=== PATIENT | female | born 1970 | race Caucasian/White ===

== ENCOUNTER 2017-11-18 17:10 | Emergency (ER) | payer OTHER ==
[~2017-11-18] VITALS: Ht 167.6 cm; Wt 108.0 kg
[~2017-11-18 17:10] MED LIST changes: -DEXAMETHASONE SOD PHOS 4 MG/ML VIAL ONE; -IOHEXOL 300 MG/ML 50 ML VIAL. ONE; -LIDOCAINE 1% PF 30 ML VIAL. ONE; -METO10TA81 PO
--- NOTE | 2017-11-18 17:21 | PHYS DOC ---
Adult General Chief Complaint Chief Complaint: HEADACHE HPI HPI 47-year-old female had an epidural for cervical radiculopathy today. After her injection just prior to arrival here she developed a severe headache. She states it feels very typical of her previous migraine headaches. She denies any fever or neck pain. She denies any lateralizing neurologic weakness. I spoke with her pain doctor on the phone and they were concerned that she may develop some neurologic finding and wanted her observed.[] Review of Systems Review of Systems Constitutional: Denies fever or chills [] Eyes: Denies change in visual acuity, redness, or eye pain [] HENT: Denies nasal congestion or sore throat [] Respiratory: Denies cough or shortness of breath [] Cardiovascular: No additional information not addressed in HPI [] GI: Denies abdominal pain, nausea, vomiting, bloody stools or diarrhea [] : Denies dysuria or hematuria [] Musculoskeletal: Denies back pain or joint pain [] Integument: Denies rash or skin lesions [] Neurologic: Per history of present illness[] Endocrine: Denies polyuria or polydipsia [] All other systems were reviewed and found to be within normal limits, except as documented in this note. Allergies Allergies Allergies Coded Allergies Type Severity Reaction Last Updated Verified Penicillins Allergy Intermediate 07/05/14 Yes diphenhydramine Allergy Intermediate 07/05/14 Yes coconut oil Allergy Mild 07/04/14 Yes lactose Allergy Mild 07/04/14 Yes Physical Exam Physical Exam Constitutional: Well developed, well nourished, appears uncomfortable what. [] HENT: Normocephalic, atraumatic, bilateral external ears normal, oropharynx moist, no oral exudates, nose normal. [] Eyes: PERRLA, EOMI, conjunctiva normal, no discharge. [] Neck: Normal range of motion, no tenderness, supple, no stridor. [] Cardiovascular:Heart rate regular rhythm, no murmur [] Lungs & Thorax: Bilateral breath sounds clear to auscultation [] Abdomen: Bowel sounds normal, soft, no tenderness, no masses, no pulsatile masses. [] Skin: Warm, dry, no erythema, no rash. [] Back: No tenderness, no CVA tenderness. [] Extremities: No tenderness, no cyanosis, no clubbing, ROM intact, no edema. [] Neurologic: Alert and oriented X 3, normal motor function, normal sensory function, no focal deficits noted. [] Psychologic: Anxious. [] EKG EKG [] Radiology/Procedures Radiology/Procedures [] Course & Med Decision Making Course & Med Decision Making Pertinent Labs and Imaging studies reviewed. (See chart for details) [ED course: Evaluation reveals a 47-year-old female with likely migraine type syndrome. She was given IV saline, Reglan, Toradol and Decadron with near complete resolution of her headache. Patient is safe for discharge home at this time.] Dragon Disclaimer Dragon Disclaimer This electronic medical record was generated, in whole or in part, using a voice recognition dictation system. Departure Departure: Impression: Primary Impression: Migraine Disposition: HOME, SELF-CARE Condition: IMPROVED Referrals: BRUNO WHITTINGTON MD (PCP) Patient Instructions: Migraine Headache Additional Instructions: Follow with her primary care physician this week for recheck. Return him or sperm with any new or concerning symptoms Scripts Metoclopramide Hcl (REGLAN) 10 Mg Tablet 10 MG PO PRN Q8HRS PRN for HEADACHE, #30 TAB 3 Refills Prov: AYDEE BOUCHER DO 11/18/17 Problem Qualifiers Primary Impression: Migraine Migraine type: unspecified Status migrainosus presence: without status migrainosus Intractability: not intractable Qualified Codes: G43.909 - Migraine, unspecified, not intractable, without status migrainosus AYDEE BOUCHER DO Nov 18, 2017 17:21
[2017-11-18] MEDS ORDERED: IV NORMAL SALINE 1,000ML 1,000 ML IV ONE (17:30)
[2017-11-18] MEDS ORDERED: METOCLOPRAMIDE HCL 10 MG/2 ML VIAL. IV ONE (17:45)
[2017-11-18] MEDS ORDERED: DEXAMETHASONE SOD PHOS 10 MG/ML VIAL IV ONE (17:45)
[2017-11-18] MEDS ORDERED: KETOROLAC 30 MG/ML VIAL. IV ONE (17:45)
[2017-11-18] MEDS ORDERED: METO10TA81 PO (18:06)
[2017-11-18 18:25] VITALS: BP 125/82
== END 2017-11-18 18:26 | disposition home or self-care (01) ==
LOC: ER 17:10
DX: G43.909 Migraine, unspecified, not intractable, without status migrainosus (principal); M54.12 Radiculopathy, cervical region; Z88.0 Allergy status to penicillin; Z88.8 Allergy status to other drugs, medicaments and biological substances; Z91.011 Allergy to milk products; Z91.048 Other nonmedicinal substance allergy status
CPT/HCPCS: 96374; 96375; 99284; J1100; J1885; J2765; J7030

== ENCOUNTER → 2017-11-18 | Outpatient (CLI) | payer OTHER ==
[2014-07-07 10:51] VITALS: BP 107/61
[~2017-11-18] MED LIST: ALBU8.5H8 IH; BECL8.7A6 IH; CEFU250T PO; CHOL20009 PO; CIPR500T94 PO; DEXAMETHASONE SOD PHOS 4 MG/ML VIAL ONE; DILT180C2 PO; DULO60CA6 PO; EZET10TA18 PO; FENO145T30 PO; HYDR-2758 PO; IOHEXOL 300 MG/ML 50 ML VIAL. ONE; LIDOCAINE 1% PF 30 ML VIAL. ONE; METF500T5 PO; METO10TA81 PO; MIRT15TA PO; MONT10TA6 PO; PANT40TA3 PO; PREG100C PO; PROM25VI5 IV; SUMA100T3 PO; TOPI100T42 PO; TRAZ-90 PO
== END ==
LOC: SURG 15:15
PROVIDERS: ATTEND Anesthesiology Pain Medicine
DX: M47.812 Spondylosis without myelopathy or radiculopathy, cervical region (principal); M50.323 Other cervical disc degeneration at C6-C7 level; K21.9 Gastro-esophageal reflux disease without esophagitis; F32.9 Major depressive disorder, single episode, unspecified; J45.909 Unspecified asthma, uncomplicated; Z98.51 Tubal ligation status; Z87.440 Personal history of urinary (tract) infections; Z88.8 Allergy status to other drugs, medicaments and biological substances; Z87.01 Personal history of pneumonia (recurrent)
CPT/HCPCS: 62321; J1100; J2001; Q9967

== ENCOUNTER → 2018-05-11 | Outpatient (CLI) | payer OTHER ==
[~2018-05-11] MED LIST changes: +HYDR-2155 PO; -HYDR-2758 PO; +METF500T16 PO; -METF500T5 PO; +METO10TA81 PO; +TRAZ-86 PO; -TRAZ-90 PO
[2018-05-11 20:07] LABS: HEMOGLOBIN A1C 5.6 % (4.8-5.6)
== END | disposition home or self-care (01) ==
LOC: LAB 08:27
DX: E11.9 Type 2 diabetes mellitus without complications (principal)
CPT/HCPCS: 36415; 83036

== ENCOUNTER → 2018-07-25 | Outpatient (CLI) | payer BC ==
[~2018-07-25] MED LIST changes: +ALBU2.5V8 IH; -ALBU8.5H8 IH; -MONT10TA6 PO; +MONT10TA80 PO
[2018-07-25 13:08] LABS: BASO % 0 % (0-3); EOS # 0.2 x10^3/uL (0.0-0.7); EOS % 3 % (0-3); HEMATOCRIT 44.6 % (36.0-47.0); LYMPH # 1.9 x10^3/uL (1.0-4.8); LYMPH % 32 % (24-48); MEAN CORPUSCULAR HEMOGLOBIN 32 pg (25-35); MEAN CORPUSCULAR HGB CONC 34 g/dL (31-37); MEAN CORPUSCULAR VOLUME 95 fL (79-100); MONO # 0.4 x10^3/uL (0.0-1.1); MONO % 7 % (0-9); NEUT # 3.5 x10^3uL (1.8-7.7); NEUT % 58 % (31-73); PLATELET COUNT 201 x10^3/uL (140-400); RED CELL DISTRIBUTION WIDTH 13.3 % (11.5-14.5); WHITE BLOOD COUNT 6.1 x10^3/uL (4.0-11.0)
[2018-07-25 13:19] LABS: ALBUMIN 3.9 g/dL (3.4-5.0); ALBUMIN/GLOBULIN RATIO 1.1 (1.0-1.7); CALCIUM 9.3 mg/dL (8.5-10.1); CREATININE 0.8 mg/dL (0.6-1.0); GFR 76.9; TOTAL BILIRUBIN 0.5 mg/dL (0.2-1.0); TOTAL PROTEIN 7.5 g/dL (6.4-8.2)
[2018-07-26 04:07] LABS: DHEA SO4 102.3 ug/dL (41.2-243.7); ESTRADIOL LEVEL 11.2 pg/mL (.); FSH 42.5 mIU/mL (.); LUTEINIZING HORMONE 29.3 mIU/mL (.); PROLACTIN 9.7 ng/mL (4.8-23.3)
[2018-07-26 06:08] LABS: HEMOGLOBIN A1C 5.8 % (4.8-5.6)
[2018-07-26 13:22] LABS: THYROID STIM HORMONE (TSH) 2.132 uIU/mL (0.358-3.740)
[2018-07-28 07:09] LABS: TESTOSTERONE FREE 0.66 ng/dL (0.10-0.85); TESTOSTERONE TOTAL 20 ng/dL (8-48)
== END | disposition home or self-care (01) ==
LOC: LAB 12:05
PROVIDERS: ATTEND Obstetrics & Gynecology
DX: N91.2 Amenorrhea, unspecified (principal)
CPT/HCPCS: 36415; 80053; 80061; 82627; 82670; 83001; 83002; 83036; 83525; 84146; 84402; 84403; 84443; 85025

== ENCOUNTER → 2018-07-26 | Outpatient (CLI) | payer BC, OTHER ==
--- NOTE | 2018-07-26 10:41 | RAD ---
DATE: 07/26/2018 EXAM: MAMMO VALERIE SCREENING BILATERAL HISTORY: Routine screening COMPARISON: 07/05/2012 This study was interpreted with the benefit of Computerized Aided Detection (CAD). Breast Density: SCATTERED The breast parenchyma shows scattered fibroglandular densities. Breast parenchyma level B. FINDINGS: 2-D and 3-D tomosynthesis imaging was performed in CC and MLO projections. There is a benign-appearing lymph node in the lateral aspect of the right breast which is unchanged. There is an 8 mm smooth nodule in the anterolateral left periareolar region as best seen on CC tomosynthesis images #19 and oblique tomosynthesis image #19. This was not definitely visible on the previous study. No other new or enlarging breast densities are seen. Minimal benign type calcifications present. No suspicious microcalcifications have developed. IMPRESSION: Small left breast nodule. Sonographic evaluation is suggested. BI-RADS CATEGORY: 0 INCOMPLETE: NEEDS ADDITIONAL IMAGING EVALUATION AND/OR PRIOR MAMMOGRAMS FOR COMPARISON. RECOMMENDED FOLLOW-UP: ADD ADDITIONAL IMAGING PQRS compliance statement: Patient information was entered into a reminder system with a target due date for the next mammogram. Mammography is a sensitive method for finding small breast cancers, but it does not detect them all and is not a substitute for careful clinical examination. A negative mammogram does not negate a clinically suspicious finding and should not result in delay in biopsying a clinically suspicious abnormality. "Our facility is accredited by the [employer] Mammography Program."
--- NOTE | 2018-07-26 11:55 | RAD ---
EXAM: Pelvic sonogram. HISTORY: Irregular periods. TECHNIQUE: Transabdominal and transvaginal sonographic imaging of the pelvis was performed. COMPARISON: None. FINDINGS: The uterus measures 7.0 x 4.8 x 4.2 cm. The endometrial stripe measures 9.4 mm transvaginally. The ovaries are normal in size and demonstrate normal blood flow. There is a 1.0 cm dominant right ovarian follicle. There is a small amount of simple free fluid. There is a nabothian cyst within the cervix. IMPRESSION: 1. Normal endometrial thickness for a premenopausal female. 2. 1.0 cm dominant right ovarian follicle. 3. Small amount of simple pelvic free fluid. 4. Nabothian cyst within the cervix. Electronically signed by: Temitope Kenny MD (07/26/2018 11:52 AM) [id number]
== END | disposition home or self-care (01) ==
LOC: US 08:20
PROVIDERS: ATTEND Obstetrics & Gynecology
DX: Z12.31 Encounter for screening mammogram for malignant neoplasm of breast (principal); N63.20 Unspecified lump in the left breast, unspecified quadrant; N83.01 Follicular cyst of right ovary; N88.8 Other specified noninflammatory disorders of cervix uteri
CPT/HCPCS: 76830; 76856; 77063; 77067

== ENCOUNTER → 2018-08-03 | Outpatient (CLI) | payer BC ==
[~2018-08-03] MED LIST changes: +MONT10TA6 PO; -MONT10TA80 PO
--- NOTE | 2018-08-03 13:39 | RAD ---
Left breast ultrasound, 08/03/2018: History: Suspicious screening study Screening images demonstrated a small smooth nodule in the anterolateral left periareolar region. A targeted ultrasound exam of that region was performed. At the 2:00 location approximately 3.5 cm in the nipple there is a small smooth elongated hypoechoic nodule. There is no posterior acoustic enhancement or shadowing. The nodule is wider than tall. It measures 8 x 6 x 2.5 mm. No internal color flow is seen. It has a relatively benign appearance and is probably a small fibroadenoma or complicated cyst. This probably corresponds to the mammographic abnormality, however, that cannot be stated with certainty. No other sonographic abnormality was seen in this region. IMPRESSION: Probably benign left breast nodule as described above. Surveillance beginning with follow-up left mammography and left breast ultrasound in 6 months is suggested. BI-RADS 3-probably benign findings
== END | disposition home or self-care (01) ==
LOC: US 12:41
PROVIDERS: ATTEND Obstetrics & Gynecology
DX: N63.21 Unspecified lump in the left breast, upper outer quadrant (principal)
CPT/HCPCS: 76641